=== PATIENT | female | born 1960 | race Hispanic/Latino ===

== ENCOUNTER 2021-12-01 23:31 | Emergency (ER) | payer BC, OTHER ==
[~2021-12-01] VITALS: Ht 165.1 cm; Wt 68.0 kg
[2021-12-02 00:24] VITALS: BP 129/59
[2021-12-02] MEDS ORDERED: CYCLOBENZAPRINE HCL 10 MG TABLET ONE (00:55)
[2021-12-02] MEDS ORDERED: NAPR-1180 PO (00:58)
[2021-12-02] MEDS ORDERED: CYCL5TAB PO (00:58)
[2021-12-02] MEDS ORDERED: CYCLOBENZAPRINE HCL 10 MG TABLET PO ONE (01:00)
[2021-12-02] MEDS ORDERED: KETOROLAC 15MG/ML VIAL (15MG/ML) IM ONE (01:00)
== END 2021-12-02 01:16 | disposition home or self-care (01) ==
LOC: EDH 23:31
DX: S76.911A Strain of unspecified muscles, fascia and tendons at thigh level, right thigh, initial encounter (principal); I10 Essential (primary) hypertension; Z98.890 Other specified postprocedural states; X58.XXXA Exposure to other specified factors, initial encounter; Y93.89 Activity, other specified; Y92.89 Other specified places as the place of occurrence of the external cause; Y99.8 Other external cause status